=== PATIENT | female | born 1960 | race Caucasian/White ===

== ENCOUNTER 2016-12-08 10:04 | Emergency (ER) | payer OTHER ==
[~2016-12-08] VITALS: Ht 152.4 cm; Wt 57.6 kg
[2016-12-08 10:08] VITALS: BP 105/63; PULSE 79; RESP 15; TEMP 97.9; O2SAT 99
[2016-12-08] MEDS ORDERED: ACID100C PO (10:21)
[2016-12-08] MEDS ORDERED: LISI2.5T3 PO (10:21)
[2016-12-08] MEDS ORDERED: CITA40TA4 PO (10:21)
[2016-12-08] MEDS ORDERED: CALC500T37 PO (10:21)
[2016-12-08] MEDS ORDERED: CHOL1CAP6 PO (10:21)
[2016-12-08] MEDS ORDERED: METO25TA3 PO (10:21)
[2016-12-08] MEDS ORDERED: VITA250C3 CHEW (10:21)
[2016-12-08] MEDS ORDERED: RANI150C PO (10:21)
[2016-12-08] MEDS ORDERED: CLOP75TA PO (10:21)
[2016-12-08] MEDS ORDERED: MULT-65 PO (10:21)
[2016-12-08] MEDS ORDERED: TRAZ100T6 PO (10:21)
[2016-12-08] MEDS ORDERED: ATOR1TAB18 PO (10:21)
[2016-12-08] MEDS ORDERED: ASPI81CH37 CHEW (10:21)
--- NOTE | 2016-12-08 10:44 | PD ---
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 States she just finished a course of antibiotics for a skin infection and then this started so she thinks it is yeast. She used 2 days of monostat but symptoms persist. Denies any fever, chest pain, sob, n/v , abdominal pain, dysuria, hematuria, vaginal bleeding. Last menstrual period was 2008. Pt is sexually active with one partner. PFSH Past Medical History Depression: Yes Cardiac Catheterization: Yes High Cholesterol: Yes Coronary Artery Disease: Yes GERD: Yes Hypertension: Yes Insomnia: Yes Influenza Vaccination: Yes ?: Not Menopausal: Yes Past Surgical History Coronary Stent: Yes (X 1) Pacemaker: Yes Social History Alcohol Use: No Tobacco Use: No Substance Use: No Allergies-Medications (Allergen,Severity, Reaction): Coded Allergies: erythromycin base (Verified Adverse Reaction, Intermediate, NAUSEA, ) adhesive (Verified Adverse Reaction, Unknown, RASH, 12/08/16) Reported Meds & Prescriptions Reported Meds & Active Scripts Active Reported Calcium Ascorbate 500 Mg Tab 500 Mg PO Vitamin C (Ascorbic Acid) 250 Mg Chew 250 Mg CHEW DAILY Vitamin D-3 (Cholecalciferol) 1,000 Unit Cap 1 Cap PO DAILY Acidophilus Probiotic (Lactobacillus) 100 Mg (1 Billion Cell) Cap 1 Tab PO DAILY Multi-Vitamin Daily (Multiple Vitamin) 1 Tab Tab 1 Tab PO DAILY Citalopram (Citalopram Hydrobromide) 40 Mg Tab 40 Mg PO DAILY Metoprolol Tartrate 25 Mg Tab 25 Mg PO DAILY Clopidogrel (Clopidogrel Bisulfate) 75 Mg Tab 75 Mg PO DAILY Lisinopril 2.5 Mg Tab 2.5 Mg PO DAILY Ranitidine (Ranitidine HCl) 150 Mg Cap 150 Mg PO DAILY Atorvastatin (Atorvastatin Calcium) 80 Mg Tab 80 Mg PO HS Trazodone (Trazodone HCl) 100 Mg Tablet 100 Mg PO HS Aspirin Low Dose (Aspirin) 81 Mg Chew 81 Mg CHEW DAILY Review of Systems Except as stated in HPI: all other systems reviewed are Neg Physical Exam Narrative GENERAL: 56yo F not in distress. SKIN: Focused skin assessment warm/dry. HEAD: Atraumatic. Normocephalic. CARDIOVASCULAR: Regular rate and rhythm. No murmur appreciated. RESPIRATORY: No accessory muscle use. Clear to auscultation. Breath sounds equal bilaterally. GASTROINTESTINAL: Abdomen soft, non-tender, nondistended. No rebound tenderness or guarding. PELVIC: Thick white vaginal discharge. No blood. No CMT or adnexal tenderness bilaterally. MUSCULOSKELETAL: No obvious deformities. No clubbing. No cyanosis. No edema. NEUROLOGICAL: Awake and alert. No obvious cranial nerve deficits. Motor grossly within normal limits. Normal speech. PSYCHIATRIC: Appropriate mood and affect; insight and judgment normal. Data Data Last Documented VS Vital Signs Date Time Temp Pulse Resp B/P (MAP) Pulse Ox O2 Delivery O2 Flow Rate FiO2 12/08/16 10:08 97.9 79 15 105/63 (77) 99 Orders Orders Gc And Chlamydia Pcr (12/08/16 10:41) Wet Prep Profile (12/08/16 10:41) Fluconazole (Diflucan) (12/08/16 11:45) Labs Laboratory Tests Test 12/08/16 11:00 Clue Cells (Wet Prep) NONE SEEN Vaginal Trichomonas (Wet Prep) NONE SEEN Vaginal Yeast (Wet Prep) NONE SEEN MDM Medical Decision Making Medical Screen Exam Complete: Yes Emergency Medical Condition: Yes Differential Diagnosis Vaginal candidiasis vs. bacterial vaginosis vs. GC/chlamydia Narrative Course 56yo F with complaint of white vaginal discharge and itching. States monostat was not working. Wet prep negative. However, clinically it appears to be vaginal yeast so will give one fluconazole 150mg PO and have pt follow up with [employer]. Return precautions given. 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 Return to the ED if symptoms worsen. Med/Other Pt SpecificInfo: No Change to Meds Disposition: 01 DISCHARGE HOME Condition: Stable Daria Alvarado Dec 08, 2016 10:44
[2016-12-08] MEDS ORDERED: FLUCONAZOLE 100 MG TAB PO ONE (11:45)
[2016-12-08 15:26] LABS: CHLAMYDIA PCR NOT DETECTED (NOT DETECT); NEISSERIA PCR NOT DETECTED (NOT DETECT)
== END 2016-12-08 12:25 | disposition home or self-care (01) ==
LOC: PHED 10:04
DX: N89.8 Other specified noninflammatory disorders of vagina (principal); Z95.0 Presence of cardiac pacemaker; E78.00 Pure hypercholesterolemia, unspecified; I25.10 Atherosclerotic heart disease of native coronary artery without angina pectoris; K21.9 Gastro-esophageal reflux disease without esophagitis; I10 Essential (primary) hypertension; Z95.5 Presence of coronary angioplasty implant and graft
CPT/HCPCS: 87210; 87491; 87591; 99284